=== PATIENT | male | born 1995 | race Caucasian/White ===

== ENCOUNTER 2019-01-04 12:41 | Emergency (ER) | payer OTHER ==
[2019-01-04] MEDS: LIDOCAINE/MYLANTA 40 ML BTL PO (13:15)
[2019-01-04] MEDS: BELLADONNA/PHENOBARBITAL TAB PO (13:17)
== END 2019-01-04 17:01 | disposition home or self-care (01) ==
LOC: FTE 12:41
DX: R10.13 Epigastric pain (principal)
CPT/HCPCS: 74019; 99283-25